=== PATIENT | female | born 2000 | race Two or more races ===

== ENCOUNTER 2020-09-05 10:13 | Emergency (ER) | payer OTHER ==
[~2020-09-05] VITALS: Ht 167.6 cm; Wt 77.1 kg
[2020-09-05] MEDS ORDERED: KETO10TA2 PO (12:15)
== END 2020-09-05 13:30 | disposition home or self-care (01) ==
LOC: EMR PED 10:13
DX: S30.0XXA Contusion of lower back and pelvis, initial encounter (principal); W18.39XA Other fall on same level, initial encounter; Y93.89 Activity, other specified; Y92.091 Bathroom in other non-institutional residence as the place of occurrence of the external cause; Y99.8 Other external cause status